=== PATIENT | female | born 1965 | race Caucasian/White ===

== ENCOUNTER 2016-03-07 15:32 | Emergency (ER) | payer MEDICARE, BC ==
[2016-03-07 16:05] LABS: BASOPHILS 0.4 % (0.0-2.0); EOSINOPHILS 0.9 % (0-7); HEMATOCRIT 47.4 % (36.0-48.0); HEMOGLOBIN 15.5 g/dL (12-16); IMMATURE GRANULOCYTES 0.2 % (0-5); LYMPHOCYTES 42.5 % (15-50); MCH 35.5 pg (26.0-34.0); MCHC 32.7 g/dL (31.0-37.0); MCV 108.5 fL (80.0-100.0); MEAN PLATELET VOLUME 9.3 fL (7.4-10.4); MONOCYTES 9.2 % (2-11); NEUTROPHILS 46.8 % (40-80); PLATELET COUNT 202 10x3/uL (130-400); RBC 4.37 10x6/uL (4.00-5.40); RDW 14.7 % (11.5-14.5); WBC 4.7 10x3/uL (4.8-10.8)
[2016-03-07 16:29] LABS: ALBUMIN 4.2 g/dL (3.4-5.0); ANION GAP 13.5 mmol/L (8-16); BILIRUBIN - TOTAL 0.17 mg/dL (0.2-1.3); CALCIUM 9.9 mg/dL (8.5-10.1); CARBON DIOXIDE 28.3 mmol/L (21.0-32.0); POTASSIUM - SERUM 4.8 mmol/L (3.5-5.1); PROTEIN - SERUM 7.9 g/dL (6.4-8.2)
[2016-03-07 16:30] LABS: VALPROIC ACID (DEPAKOTE) 40.8 ug/mL (50.0-100.0)
== END 2016-03-07 19:35 | disposition home or self-care (01) ==
LOC: D.ER 15:32
PROVIDERS: Emergency Medicine
DX: R53.81 Other malaise (principal); Z03.89 Encounter for observation for other suspected diseases and conditions ruled out; F17.200 Nicotine dependence, unspecified, uncomplicated; G40.409 Other generalized epilepsy and epileptic syndromes, not intractable, without status epilepticus; F41.9 Anxiety disorder, unspecified; F32.9 Major depressive disorder, single episode, unspecified

== ENCOUNTER → 2017-11-27 18:37 | Outpatient (CLI) | payer MEDICARE | END | disposition home or self-care (01) | LOC: D.MAMMO 10:00 | DX: Z12.31 Encounter for screening mammogram for malignant neoplasm of breast (principal) ==

== ENCOUNTER → 2018-03-19 11:20 | Outpatient (CLI) | payer MEDICARE ==
[~2018-03-19 11:20] MED LIST: BUSPAR10 MG PO; DEPAKOTE ER500 MG PO; LAMICTAL150 M1 PO; MEGACE 20 MG TA20 MG PO; STADOL NASAL S2.5 ML NASAL; XANAX2 MG PO
== END | disposition home or self-care (01) ==
LOC: D.CT 03-11 17:00
DX: G43.909 Migraine, unspecified, not intractable, without status migrainosus (principal)

== ENCOUNTER 2018-03-29 12:23 | Emergency (ER) | payer MEDICARE ==
[~2018-03-29] VITALS: Ht 172.7 cm; Wt 59.1 kg
[2018-03-29 12:36] VITALS: BP 140/34; Ht 172.7 cm; Wt 59.1 kg
[2018-03-29] MEDS ORDERED: LAMICTAL150 M1 PO (12:38)
[2018-03-29] MEDS ORDERED: XANAX2 MG PO (12:38)
[2018-03-29] MEDS ORDERED: DEPAKOTE ER500 MG PO (12:38)
[2018-03-29] MEDS ORDERED: MEGACE 20 MG TA20 MG PO (12:38)
[2018-03-29] MEDS ORDERED: STADOL NASAL S2.5 ML NASAL ×2 (12:39→14:00)
[2018-03-29] MEDS ORDERED: BUSPAR10 MG PO (12:39)
[2018-03-29 13:07] LABS: APPEARANCE HAZY (CLEAR); BILIRUBIN NEGATIVE (NEGATIVE); COLOR YELLOW (YELLOW); GLUCOSE NEGATIVE (NEGATIVE); KETONE NEGATIVE (NEGATIVE); NITRITE NEGATIVE (NEGATIVE); PROTEIN NEGATIVE (NEGATIVE); SPECIFIC GRAVITY 1.015 (1.005-1.020); UROBILINOGEN NORMAL (NORMAL)
== END 2018-03-29 14:23 | disposition home or self-care (01) ==
LOC: D.ER 12:23
PROVIDERS: Family Medicine
DX: G43.909 Migraine, unspecified, not intractable, without status migrainosus (principal); G40.909 Epilepsy, unspecified, not intractable, without status epilepticus; F17.200 Nicotine dependence, unspecified, uncomplicated

== ENCOUNTER → 2018-08-01 12:15 | Outpatient (CLI) | payer MEDICARE | END | disposition home or self-care (01) | LOC: D.LABREF 12:15 | DX: G40.409 Other generalized epilepsy and epileptic syndromes, not intractable, without status epilepticus (principal); Z51.81 Encounter for therapeutic drug level monitoring; Z79.899 Other long term (current) drug therapy ==

== ENCOUNTER 2019-08-12 18:47 | Emergency (ER) | payer MEDICARE ==
[~2019-08-12] VITALS: Ht 172.7 cm; Wt 59.1 kg
[2019-08-12 18:50] VITALS: Ht 172.7 cm; Wt 59.1 kg
[2019-08-12 19:15] LABS: BASOPHILS 0.2 % (0-2); EOSINOPHILS 0 % (0-7); HEMATOCRIT 47.2 % (36.0-48.0); HEMOGLOBIN 15.3 g/dL (12-16); IMMATURE GRANULOCYTES 0.2 % (0-5); LYMPHOCYTES 24.3 % (15-50); MCH 34.5 pg (26.0-34.0); MCHC 32.4 g/dL (31.0-37.0); MCV 106.5 fL (80.0-100.0); MEAN PLATELET VOLUME 10.1 fL (7.4-10.4); MONOCYTES 4.7 % (2-11); NEUTROPHILS 70.6 % (40-80); RBC 4.43 10x6/uL (4.00-5.40); RDW 12.4 % (11.5-14.5)
[2019-08-12 19:17] LABS: PLATELET COUNT 116 10x3/uL (130-400)
[2019-08-12 19:38] LABS: CALC OSMOLALITY 281 mosm/kg (275-300); CALCIUM 8.9 mg/dL (8.5-10.1); CARBON DIOXIDE 22.6 mmol/L (21.0-32.0); CHLORIDE - SERUM 107 mmol/L (98-107); GLUCOSE 122 mg/dL (74-106); POTASSIUM - SERUM 4.3 mmol/L (3.5-5.1); SODIUM 141 mmol/L (136-145); UREA NITROGEN 13 mg/dL (7-18); eGFR NON AFRICAN AMERICAN 61 mL/min (90-120)
[2019-08-12 19:47] LABS: ALBUMIN 3.7 g/dL (3.4-5.0); ALKALINE PHOSPHATASE 46 U/L (30-120); ALT (SGPT) 12 U/L (10-68); AMYLASE - SERUM 56 U/L (25-115); BILIRUBIN - TOTAL 0.34 mg/dL (0.2-1.3); LIPASE 75 U/L (73-393); PROTEIN - SERUM 7.2 g/dL (6.4-8.2); TROPONIN-I < 0.017 ng/mL (0.000-0.060); VALPROIC ACID (DEPAKOTE) 81.9 ug/mL (50.0-100.0)
[2019-08-12 20:32] LABS: BILIRUBIN NEGATIVE (NEGATIVE); GLUCOSE 50 mg/dL (NEGATIVE); KETONE MODERATE mg/dL (NEGATIVE); NITRITE NEGATIVE (NEGATIVE); SPECIFIC GRAVITY 1.025 (1.005-1.020); UROBILINOGEN NORMAL (NORMAL)
[2019-08-12 20:36] LABS: UDS - AMPHET NEGATIVE QUAL (NEGATIVE); UDS - BARB NEGATIVE QUAL (NEGATIVE); UDS - BENZO POSITIVE QUAL (NEGATIVE); UDS - COCAINE NEGATIVE QUAL (NEGATIVE); UDS - OPIATE NEGATIVE QUAL (NEGATIVE); UDS - PCP NEGATIVE QUAL (NEGATIVE); UDS - THC NEGATIVE QUAL (NEGATIVE)
[2019-08-12] MEDS ORDERED: MECLIZINE HCL25 MG PO (21:01)
[2019-08-12] MEDS ORDERED: PHENERGAN25 M1 PO (21:02)
[2019-08-12 21:45] VITALS: BP 149/90
== END 2019-08-12 21:45 | disposition home or self-care (01) ==
LOC: D.ER 18:47
PROVIDERS: Family Medicine
DX: R42 Dizziness and giddiness (principal); R11.2 Nausea with vomiting, unspecified; G40.909 Epilepsy, unspecified, not intractable, without status epilepticus

== ENCOUNTER → 2019-08-29 13:33 | Outpatient (CLI) | payer MEDICARE ==
[2019-08-12 18:50] VITALS: BMI 19.8
[~2019-08-29 13:33] MED LIST changes: +MECLIZINE HCL25 MG PO; +PHENERGAN25 M1 PO
== END | disposition home or self-care (01) ==
LOC: D.LABREF 13:33
PROVIDERS: ATTEND Family Medicine
DX: G40.909 Epilepsy, unspecified, not intractable, without status epilepticus (principal)